=== PATIENT | male | born 1945 | race Caucasian/White ===

== ENCOUNTER 2019-05-13 13:31 | Inpatient (IN) | payer MEDICARE ==
[~2019-05-13] VITALS: Ht 170.2 cm; Wt 67.6 kg
[2019-05-13 15:32] LABS: CHLORIDE 89 mEq/L (98-107)
[2019-05-13 15:37] LABS: BASOPHILS % 0.2 % (0.0-2.0); EOSINOPHILS % 0.1 % (0.0-5.0); HEMATOCRIT. 35.3 % (42.0-52.0); LYMPHOCYTES % 15.7 % (20.0-50.0); MEAN CORPUSCULAR HEMOGLOBIN 29.9 pg (28.0-32.0); MEAN CORPUSCULAR VOLUME 88.1 fL (80.0-94.0); MEAN PLATELET VOLUME 8.2 fl (7.4-10.4); PLATELET 245 x1000/uL (130-400); RED CELL DISTRIBUTION WIDTH 14.8 % (11.6-14.6)
[2019-05-13] MEDS ORDERED: FOLIC ACID 1 MG, THIAMINE HCL 100 MG, MVI, ADULT NO.1 10 ML in DEXTROSE 5% WATER 1,000 ML IV ONE ×4 (16:00)
[2019-05-13] MEDS ORDERED: LORAZEPAM 1MG TABLET PO ONE (17:15)
[2019-05-13] MEDS ORDERED: DIAZEPAM 5 MG/ML 2ML CPJ IV ONE (18:00)
[2019-05-13] MEDS ORDERED: MAGNESIUM/ALUMINUM HYDROXIDE/SIMETHICONE 30ML UDC PO PRN (18:45)
[2019-05-13] MEDS ORDERED: ONDANSETRON HCL 4MG/2ML INJ IV PRN (18:45)
[2019-05-13] MEDS ORDERED: DOCUSATE SODIUM 100MG CAPSULE PO PRN (18:45)
[2019-05-13] MEDS ORDERED: TRAMADOL 50MG TABLET PO PRN (18:45)
[2019-05-13] MEDS ORDERED: LORAZEPAM 2MG/ML CPJ IV PRN (18:45)
[2019-05-13] MEDS ORDERED: CLONIDINE 0.1MG TABLET PO PRN (18:45)
[2019-05-13] MEDS ORDERED: ACETAMINOPHEN 325MG TABLET PO PRN (18:45)
[2019-05-13] MEDS ORDERED: KETOROLAC 15MG/ML VIAL IV PRN (18:45)
[2019-05-13] MEDS ORDERED: IPRATROPIUM/ALBUTEROL 0.5-3(2.5)MG/3ML NEB INH PRN (18:45)
[2019-05-13] MEDS ORDERED: NITROGLYCERIN 0.4MG TABLET SL SL PRN (18:45)
[2019-05-13 19:43] LABS: VITAMIN B12 SERUM 1972 pg/mL (211-911)
[2019-05-13 19:45] LABS: FOLIC ACID (FOLATE) SERUM > 20.00 ng/mL (>5.38)
[2019-05-13] MEDS ORDERED: KCL 20MEQ/100ML PREMIX 100 ML IV NR (20:30)
[2019-05-13 20:58] LABS: CLARITY URINE CLOUDY (CLEAR); COLOR URINE YELLOW (YELLOW); KETONES URINE TRACE (NEGATIVE); LEUKOCYTE ESTERASE URINE NEGATIVE (NEGATIVE); NITRITE URINE NEGATIVE (NEGATIVE); OCCULT BLOOD URINE 3+ (NEGATIVE); PROTEIN URINE 1+ (NEGATIVE); SPECIFIC GRAVITY URINE 1.018 (1.005-1.030)
[2019-05-13 21:12] LABS: *AMPHETAMINES SCREEN URINE NEGATIVE (NEGATIVE); *BARBITURATES SCREEN URINE NEGATIVE (NEGATIVE)
[2019-05-13 21:13] LABS: *BENZODIAZEPINES SCREEN URINE NEGATIVE (NEGATIVE); *COCAINE SCREEN URINE NEGATIVE (NEGATIVE); CANNABINOID URINE SCREEN NEGATIVE (NEGATIVE); METHADONE URINE SCREEN NEGATIVE (NEGATIVE); OPIATES URINE SCREEN NEGATIVE (NEGATIVE); PHENCYCLIDINE URINE SCREEN NEGATIVE (NEGATIVE)
[2019-05-13] MEDS ORDERED: POTASSIUM CHLORIDE 20MEQ TABLET SR PO NR (22:00)
[2019-05-13 22:01] VITALS: BP 132/82
[2019-05-13 22:40] VITALS: BP 132/82
[2019-05-13] MEDS: GUAIFENESIN 200MG/10ML SUGAR FREE UDC PO PRN (22:44)
[2019-05-13] MEDS: CHLORDIAZEPOXIDE 25MG CAPSULE PO SCH (22:45)
[2019-05-13] MEDS: METOPROLOL TARTRATE 25MG TABLET PO SCH (22:45)
[2019-05-14] VITALS: BP 131/71
[2019-05-14 00:17] LABS: CREATINE KINASE MB FRACTION 12.9 ng/mL (0.5-3.6)
[2019-05-14 04:00] VITALS: BP 145/85
[2019-05-14] MEDS: CHLORDIAZEPOXIDE 25MG CAPSULE PO SCH (05:15)
[2019-05-14] MEDS: GUAIFENESIN 200MG/10ML SUGAR FREE UDC PO PRN (05:21)
[2019-05-14 07:15] LABS: CREATINE KINASE MB FRACTION 8.8 ng/mL (0.5-3.6)
[2019-05-14 08:00] VITALS: BP 146/78
[2019-05-14] MEDS: FAMOTIDINE 20MG TABLET PO SCH (08:38)
[2019-05-14] MEDS: METOPROLOL TARTRATE 25MG TABLET PO SCH ×2 (08:38→21:00)
[2019-05-14] MEDS: ENOXAPARIN 40MG/0.4ML SYR SUBCUT SCH (08:39)
[2019-05-14] MEDS: DUTASTERIDE 0.5MG CAPSULE PO SCH (10:49)
[2019-05-14] MEDS: TAMSULOSIN HCL 0.4MG SR CAPSULE PO SCH ×2 (10:49→21:22)
[2019-05-14 12:00] VITALS: BP 115/69
[2019-05-14] MEDS: FOLIC ACID 1MG TABLET PO SCH (14:42)
[2019-05-14] MEDS: CHLORDIAZEPOXIDE 5 MG CAPSULE PO SCH ×2 (14:42→21:22)
[2019-05-14 16:00] VITALS: BP 114/66
[2019-05-14 20:00] VITALS: BP 107/62
[2019-05-15] VITALS: BP 117/66
[2019-05-15] MEDS: GUAIFENESIN 200MG/10ML SUGAR FREE UDC PO PRN ×3 (03:06→18:16)
[2019-05-15 04:00] VITALS: BP 116/72
[2019-05-15] MEDS: CHLORDIAZEPOXIDE 5 MG CAPSULE PO SCH ×3 (05:07→21:11)
[2019-05-15 08:00] VITALS: BP 128/64
[2019-05-15] MEDS: FOLIC ACID 1MG TABLET PO SCH (09:01)
[2019-05-15] MEDS: MULTIVITAMINS,THER W-MINERALS TABLET PO SCH (09:01)
[2019-05-15] MEDS: DUTASTERIDE 0.5MG CAPSULE PO SCH (09:01)
[2019-05-15] MEDS: TAMSULOSIN HCL 0.4MG SR CAPSULE PO SCH ×2 (09:01→21:11)
[2019-05-15] MEDS: METOPROLOL TARTRATE 25MG TABLET PO SCH ×2 (09:01→21:37)
[2019-05-15] MEDS: FAMOTIDINE 20MG TABLET PO SCH (09:01)
[2019-05-15] MEDS: THIAMINE HCL 100MG TABLET PO SCH (09:02)
[2019-05-15] MEDS: ENOXAPARIN 40MG/0.4ML SYR SUBCUT SCH (09:02)
[2019-05-15 12:00] VITALS: BP 104/66
[2019-05-15 16:00] VITALS: BP 114/54
[2019-05-15 17:33] LABS: HEMATOCRIT. 33.7 % (42.0-52.0); HEMOGLOBIN. 11.3 g/dL (14.0-18.0); MEAN CORPUSCULAR VOLUME 89.6 fL (80.0-94.0); MEAN PLATELET VOLUME 7.9 fl (7.4-10.4); PLATELET 259 x1000/uL (130-400); RED BLOOD CELL COUNT 3.76 mill/uL (4.7-6.1); RED CELL DISTRIBUTION WIDTH 15.4 % (11.6-14.6)
[2019-05-15 20:00] VITALS: BP 120/69
[2019-05-15 20:56] LABS: PLATELET ESTIMATE NORMAL
[2019-05-16] VITALS: BP 101/57
[2019-05-16 04:00] VITALS: BP_SYST 101; BP_SYST 118; BP_DIAS 57; BP_DIAS 64
[2019-05-16] MEDS: CHLORDIAZEPOXIDE 5 MG CAPSULE PO SCH ×2 (06:13→13:36)
[2019-05-16 08:00] VITALS: BP 125/62
[2019-05-16] MEDS: FAMOTIDINE 20MG TABLET PO SCH (09:08)
[2019-05-16] MEDS: ENOXAPARIN 40MG/0.4ML SYR SUBCUT SCH (09:08)
[2019-05-16] MEDS: DUTASTERIDE 0.5MG CAPSULE PO SCH (09:09)
[2019-05-16] MEDS: THIAMINE HCL 100MG TABLET PO SCH (09:09)
[2019-05-16] MEDS: MULTIVITAMINS,THER W-MINERALS TABLET PO SCH (09:09)
[2019-05-16] MEDS: TAMSULOSIN HCL 0.4MG SR CAPSULE PO SCH (09:09)
[2019-05-16] MEDS: METOPROLOL TARTRATE 25MG TABLET PO SCH ×2 (09:09→21:00)
[2019-05-16] MEDS: FOLIC ACID 1MG TABLET PO SCH (09:09)
[2019-05-16 12:00] VITALS: BP 120/76
[2019-05-16] MEDS ORDERED: NA PHOS,M-B/NA PHOS,DI-BA ENEMA 118ML PR NR (14:00)
[2019-05-16] MEDS: LACTULOSE 20G/30ML UDC PO SCH ×3 (14:00→17:31)
[2019-05-16 16:00] VITALS: BP 114/67
[2019-05-16] MEDS: DOCUSATE SODIUM 100MG CAPSULE PO SCH (16:59)
[2019-05-16 20:00] VITALS: BP 107/65
[2019-05-16] MEDS ORDERED: POLYETHYLENE GLYCOL 3350 (17GM) 1 DOSE PACK PO SCH (21:00)
[2019-05-17] VITALS: BP 101/60
[2019-05-17] MEDS: TAMSULOSIN HCL 0.4MG SR CAPSULE PO SCH ×2 (03:04→10:09)
[2019-05-17] MEDS: LACTULOSE 20G/30ML UDC PO SCH (03:26)
[2019-05-17 04:00] VITALS: BP 115/71
[2019-05-17 06:35] LABS: CHLORIDE 99 mEq/L (98-107)
[2019-05-17 06:44] LABS: BASOPHILS % 0.1 % (0.0-2.0); HEMATOCRIT. 28.6 % (42.0-52.0); HEMOGLOBIN. 9.7 g/dL (14.0-18.0); LYMPHOCYTES % 15.6 % (20.0-50.0); MEAN CORPUSCULAR HEMOGLOBIN 30.1 pg (28.0-32.0); MEAN CORPUSCULAR VOLUME 88.9 fL (80.0-94.0); MEAN PLATELET VOLUME 7.3 fl (7.4-10.4); MONOCYTES % 7.9 % (2.0-8.0); NEUTROPHILS % 75.4 % (40.0-76.0); PLATELET 373 x1000/uL (130-400); RED BLOOD CELL COUNT 3.22 mill/uL (4.7-6.1); RED CELL DISTRIBUTION WIDTH 15.3 % (11.6-14.6)
[2019-05-17 06:47] LABS: CREATINE KINASE 84 IU/L (39-308)
[2019-05-17] MEDS ORDERED: BISACODYL 10MG SUPP PR SCH (07:45)
[2019-05-17 08:00] VITALS: BP 99/62
[2019-05-17] MEDS ORDERED: NA PHOS,M-B/NA PHOS,DI-BA ENEMA 118ML PR PRN (09:00)
[2019-05-17] MEDS: METOPROLOL TARTRATE 25MG TABLET PO SCH (09:00)
[2019-05-17] MEDS: DOCUSATE SODIUM 100MG CAPSULE PO SCH (10:07)
[2019-05-17] MEDS: THIAMINE HCL 100MG TABLET PO SCH (10:09)
[2019-05-17] MEDS: DUTASTERIDE 0.5MG CAPSULE PO SCH (10:09)
[2019-05-17] MEDS: FOLIC ACID 1MG TABLET PO SCH (10:10)
[2019-05-17] MEDS: FAMOTIDINE 20MG TABLET PO SCH (10:10)
[2019-05-17] MEDS: ENOXAPARIN 40MG/0.4ML SYR SUBCUT SCH (10:10)
[2019-05-17] MEDS: MULTIVITAMINS,THER W-MINERALS TABLET PO SCH (10:16)
[2019-05-17] MEDS: GUAIFENESIN 200MG/10ML SUGAR FREE UDC PO PRN (10:34)
[2019-05-17 12:00] VITALS: BP 99/62
[2019-05-17] MEDS ORDERED: SODIUM CHLORIDE 0.9% 1,000 ML IV SCH (12:30)
[2019-05-17 13:38] VITALS: BP 111/66
[2019-05-17 16:00] VITALS: BP 95/54
[2019-05-18] MEDS ORDERED: MULT-1116 PO (03:11)
[2019-05-18] MEDS ORDERED: GLUC-113 PO (03:11)
[2019-05-18] MEDS ORDERED: [UNRECOGNIZED DRUG - REMARK] PO (03:11)
== END 2019-05-17 18:35 | DRG 91 ==
LOC: ER 13:31 → 5WST 17:54 → EDBEDREQ 18:05 → SUPCPDRO 18:36 → ENRESERV 19:43 → 5WST 21:15 → UNDODISIN 05-17 17:41
PROVIDERS: ADMIT Internal Medicine; ATTEND Internal Medicine
DX: G92 Toxic encephalopathy (principal); N17.0 Acute kidney failure with tubular necrosis; E43 Unspecified severe protein-calorie malnutrition; E87.1 Hypo-osmolality and hyponatremia; M62.82 Rhabdomyolysis; N39.0 Urinary tract infection, site not specified; F10.239 Alcohol dependence with withdrawal, unspecified; F10.229 Alcohol dependence with intoxication, unspecified; E87.6 Hypokalemia; R73.03 Prediabetes; D63.8 Anemia in other chronic diseases classified elsewhere; G62.9 Polyneuropathy, unspecified; R26.9 Unspecified abnormalities of gait and mobility; M21.371 Foot drop, right foot; M21.372 Foot drop, left foot; N40.0 Benign prostatic hyperplasia without lower urinary tract symptoms; R74.0 Nonspecific elevation of levels of transaminase and lactic acid dehydrogenase [LDH]; E88.09 Other disorders of plasma-protein metabolism, not elsewhere classified; Z82.49 Family history of ischemic heart disease and other diseases of the circulatory system; Z88.2 Allergy status to sulfonamides; Z68.23 Body mass index [BMI] 23.0-23.9, adult
CPT/HCPCS: 36415; 71045; 80048; 80061; 80305; 80320; 81003; 82140; 82550; 82553; 82607; 82746; 82962; 83036; 83540; 83550; 83735; 84484; 92523; 92610; 93005; 93306; 93970; 96374; 97162; 97166; 97530; 99285; J1650; J3411; J3480; J3490; J7070; G0480